=== PATIENT | male | born 1960 | race Two or more races ===

== ENCOUNTER → 2020-02-22 | Outpatient (CLI) | payer OTHER | END | disposition home or self-care (01) | LOC: STAR 09:39 | PROVIDERS: ATTEND Internal Medicine Cardiovascular Disease | DX: Z20.828 Contact with and (suspected) exposure to other viral communicable diseases (principal) | CPT/HCPCS: 87635 ==

== ENCOUNTER 2020-02-28 06:14 | Observation (INO) | payer OTHER ==
[~2020-02-28] VITALS: Ht 188 cm; Wt 98.4 kg
[2020-02-28] MEDS ORDERED: APIX5TAB PO (06:39)
[2020-02-28] MEDS ORDERED: EZET10TA70 PO (06:39)
[2020-02-28] MEDS ORDERED: ROSU40TA PO (06:39)
[2020-02-28 06:40] VITALS: BP 139/106
[2020-02-28] MEDS ORDERED: SODIUM CHLORIDE 0.9% 1,000 ML IV SCH (07:00)
[2020-02-28 07:07] LABS: BASOPHILS % (AUTO) 1 % (0-1); EOSINOPHILS % (AUTO) 7 % (1-7); LYMPHOCYTES % (AUTO) 26 % (22-44); MEAN CORPUSCULAR HEMOGLOBIN 33.9 pg (27.5-34.5); MEAN CORPUSCULAR HGB CONC 34.9 g/dL (33.2-36.2); MEAN PLATELET VOLUME 8.1 fL (7.4-10.4); MONOCYTES % (AUTO) 10 % (2-9); NEUTROPHILS % (AUTO) 57 % (42-75); PLATELET COUNT 155 x10^3/uL (130-400); RED BLOOD COUNT 4.46 x10^6/uL (4.38-5.82); RED CELL DISTRIBUTION WIDTH 13.2 % (9.4-14.8)
[2020-02-28 07:09] LABS: MD NO
[2020-02-28 07:17] LABS: CALCIUM 8.4 mg/dL (8.5-10.1); CHLORIDE 113 mmol/L (98-107); CREATININE 1.13 mg/dL (0.7-1.3)
[2020-02-28 07:26] LABS: ANION GAP 6 mmol/L (5-15)
[2020-02-28] MEDS ORDERED: LIDOCAINE 1%, 20ML ONE (07:27)
[2020-02-28] MEDS ORDERED: FENTANYL PF 250 MCG/5ML ONE (07:30)
[2020-02-28] MEDS ORDERED: MIDAZOLAM 1 MG/ML, 2ML ONE (07:30)
[2020-02-28] MEDS ORDERED: ROCURONIUM 10 MG/ML,10ML ONE (07:58)
[2020-02-28] MEDS ORDERED: SUCCINYLCHOLINE 20 MG/ML, 10ML ONE (07:58)
[2020-02-28] MEDS ORDERED: CEFAZOLIN 1,000 MG ONE (07:58)
[2020-02-28] MEDS ORDERED: ONDANSETRON 2MG/ML, 2ML ONE (07:58)
[2020-02-28] MEDS ORDERED: PHENYLEPHRINE 10 MG/ML ONE (07:58)
[2020-02-28] MEDS ORDERED: PROPOFOL 10 MG/ML, 20ML ONE (07:58)
[2020-02-28] MEDS ORDERED: DEXAMETHASONE 4 MG/ML, 1ML ONE (07:58)
[2020-02-28] MEDS ORDERED: ISOPROTERENOL 0.2MG/ML, 5ML ONE (09:16)
[2020-02-28] MEDS ORDERED: APIXABAN 5 MG TABLET ONE (10:27)
[2020-02-28] MEDS ORDERED: EPHEDRINE 50 MG/ML, 1ML IVPush PRN (10:30)
[2020-02-28] MEDS ORDERED: ACETAMINOPHEN 325 MG TABLET PO PRN ×2 (10:30)
[2020-02-28] MEDS ORDERED: FENTANYL PF 100 MCG/2ML IV PRN (10:30)
[2020-02-28] MEDS ORDERED: DIAZEPAM 5 MG/ML, 2ML IVPush PRN (10:30)
[2020-02-28] MEDS ORDERED: LABETALOL 5MG/ML, 20ML IV PRN (10:30)
[2020-02-28] MEDS ORDERED: ALBUTEROL SULFATE 2.5 MG/3 ML NPPB PRN (10:30)
[2020-02-28] MEDS ORDERED: MIDAZOLAM 1 MG/ML, 2ML IV PRN (10:30)
[2020-02-28] MEDS ORDERED: MEPERIDINE/PF 25MG/0.5ML IVPush PRN (10:30)
[2020-02-28] MEDS ORDERED: PROMETHAZINE 12.5 MG SUPP PR PRN (10:30)
[2020-02-28] MEDS ORDERED: HYDROmorphone 1 MG/ML, 1ML INJ IVPush PRN (10:30)
[2020-02-28] MEDS ORDERED: PROMETHAZINE 25 MG/ML, 1ML IVPush PRN (10:30)
[2020-02-28] MEDS ORDERED: ONDANSETRON 2MG/ML, 2ML IVPush PRN (10:30)
[2020-02-28] MEDS ORDERED: hydrALAzine 20 MG/ML, 1ML IV PRN (10:30)
[2020-02-28] MEDS ORDERED: APIXABAN 5 MG TABLET PO SCH (10:30)
[2020-02-28] MEDS ORDERED: OXYcodone 5 MG/5 ML ORAL.SOL UDC PO PRN (10:30)
[2020-02-28] MEDS ORDERED: DIPHENHYDRAMINE 50 MG/ML, 1ML IVPush PRN (10:30)
[2020-02-28] MEDS: APIXABAN 5 MG TABLET PO SCH ×2 (10:45→22:11)
[2020-02-28 11:40] VITALS: BP 128/86
[2020-02-28 14:56] VITALS: BP 124/85
[2020-02-28 20:55] VITALS: BP 129/87
[2020-02-28] MEDS ORDERED: ATORVASTATIN 80 MG TABLET PO SCH (21:00)
[2020-02-28] MEDS: COLCHICINE 0.6 MG CAPSULE PO SCH (22:09)
[2020-02-29 03:02] VITALS: BP 111/76
[2020-02-29] MEDS ORDERED: ACET325T26 PO (08:08)
[2020-02-29] MEDS ORDERED: COLC0.6C3 PO (08:08)
[2020-02-29 08:48] VITALS: BP 104/70
[2020-02-29] MEDS ORDERED: EZETIMIBE 10 MG TABLET PO SCH (09:00)
[2020-02-29] MEDS: APIXABAN 5 MG TABLET PO SCH (09:30)
[2020-02-29] MEDS: COLCHICINE 0.6 MG CAPSULE PO SCH (09:30)
== END 2020-02-29 12:00 | disposition home or self-care (01) ==
LOC: OR 06:14 → ORIP 10:14 → 5SO 11:30 → DCLOUNGE 02-29 11:54
PROVIDERS: ADMIT Internal Medicine Cardiovascular Disease; ATTEND Internal Medicine Cardiovascular Disease
DX: I48.91 Unspecified atrial fibrillation (principal); I48.4 Atypical atrial flutter; I45.9 Conduction disorder, unspecified; I10 Essential (primary) hypertension; I25.799 Atherosclerosis of other coronary artery bypass graft(s) with unspecified angina pectoris; F10.10 Alcohol abuse, uncomplicated; Z79.899 Other long term (current) drug therapy; Z79.01 Long term (current) use of anticoagulants
CPT/HCPCS: 36415; 71046; 80048; 85025; 85347; 93306; 93462; 93613; 93623; 93653; 93662; C1730; C1732; C1759; C1766; C1893; C1894; G0378; J0330; J0690; J1100; J2250; J2370; J2405; J2704; J3010; J3490